=== PATIENT | female | born 1990 | race African-American/Black ===

== ENCOUNTER 2016-12-30 11:44 | Emergency (ER) | payer OTHER ==
[2016-12-30 12:00] VITALS: BP 113/63; PULSE 93; RESP 18; TEMP 99.3; O2SAT 99
--- NOTE | 2016-12-30 12:27 | PD ---
HPI Chief Complaint: Psychiatric Symptoms Time Seen by Provider: 12:27 Travel History International Travel<30 days: No Contact w/Intl Traveler<30days: No Traveled to known affect area: No History of Present Illness HPI 26-year-old female is brought to the emergency department under Phillip act for suicidal ideations. Per the Phillip act report the patient took a picture of herself holding a gun to her head and sent this in a text message to her friends. She states that she's had recent life stressors such as losing her job , relationship issues and multiple family illnesses that is causing her to feel overwhelmed. She denies suicidal or homicidal ideations. She denies any attempts to harm herself. Denies any ingestion of substances in an attempt to harm herself. She denies any physical complaints. Denies any chest pain, shortness of breath, abdominal pain, nausea, vomiting, diarrhea, headache, dizziness. Denies alcohol or drug use. No other complaints. PFSH Past Medical History Medical History: Denies Significant Hx Diminished Hearing: No Tetanus Vaccination: Unknown Influenza Vaccination: No ?: Not LMP: CURRENTLY ON PERIOD Past Surgical History Surgical History: No Previous Surgery Social History Alcohol Use: No Tobacco Use: No Substance Use: No Allergies-Medications (Allergen,Severity, Reaction): Coded Allergies: No Known Allergies (Unverified , 12/30/16) Reported Meds & Prescriptions Reported Meds & Active Scripts Active No Active Prescriptions or Reported Medications Review of Systems Except as stated in HPI: all other systems reviewed are Neg Physical Exam Narrative GENERAL: Well-nourished and well-developed pleasant female patient in no acute distress who is nontoxic appearing. SKIN: Warm and dry. HEAD: Normocephalic and atraumatic. EYES: No injection, drainage, or hyphema noted. PERRLA. EOMI. ENT: No nasal drainage noted. Oropharynx is clear. NECK: Supple and the trachea is midline. CARDIOVASCULAR: Regular rate and rhythm. RESPIRATORY: Breath sounds are equal bilaterally with no accessory muscle use, wheezing, rhonchi, or crackles. GASTROINTESTINAL: Abdomen is soft, non-tender, and nondistended. MUSCULOSKELETAL: No obvious deformities, swelling, cyanosis, or ecchymosis is present throughout the upper and lower extremities. Patient has full range of motion without any signs of neurovascular compromise. NEUROLOGICAL: Awake, alert, and oriented. Normal speech and gait. Cranial nerves are grossly intact. Data Data Last Documented VS Vital Signs Date Time Temp Pulse Resp B/P Pulse Ox O2 Delivery O2 Flow Rate FiO2 12/30/16 12:00 99.3 93 18 113/63 99 Room Air Orders Complete Blood Count With Diff (12/30/16 12:00) Comprehensive Metabolic Panel (12/30/16 12:00) Ed Urine Pregnancytest Poc (12/30/16 12:00) Psych Screen (12/30/16 12:00) Drug Screen, Random Urine (12/30/16 12:00) Alcohol (Ethanol) (12/30/16 12:00) Labs Laboratory Tests Test 12/30/16 12:15 White Blood Count 5.2 TH/MM3 Red Blood Count 4.96 MIL/MM3 Hemoglobin 12.2 GM/DL Hematocrit 37.9 % Mean Corpuscular Volume 76.4 FL Mean Corpuscular Hemoglobin 24.5 PG Mean Corpuscular Hemoglobin 32.1 % Concent Red Cell Distribution Width 14.9 % Platelet Count 240 TH/MM3 Mean Platelet Volume 8.2 FL Neutrophils (%) (Auto) 59.5 % Lymphocytes (%) (Auto) 32.5 % Monocytes (%) (Auto) 7.1 % Eosinophils (%) (Auto) 0.6 % Basophils (%) (Auto) 0.3 % Neutrophils # (Auto) 3.1 TH/MM3 Lymphocytes # (Auto) 1.7 TH/MM3 Monocytes # (Auto) 0.4 TH/MM3 Eosinophils # (Auto) 0.0 TH/MM3 Basophils # (Auto) 0.0 TH/MM3 CBC Comment DIFF FINAL Differential Comment Sodium Level 140 MEQ/L Potassium Level 3.7 MEQ/L Chloride Level 108 MEQ/L Carbon Dioxide Level 25.1 MEQ/L Anion Gap 7 MEQ/L Blood Urea Nitrogen 8 MG/DL Creatinine 0.65 MG/DL Estimat Glomerular Filtration 132 ML/MIN Rate Random Glucose 91 MG/DL Calcium Level 8.8 MG/DL Total Bilirubin 0.4 MG/DL Aspartate Amino Transf 17 U/L (AST/SGOT) Alanine Aminotransferase 17 U/L (ALT/SGPT) Alkaline Phosphatase 81 U/L Total Protein 8.3 GM/DL Albumin 3.4 GM/DL Urine Opiates Screen NEG Urine Barbiturates Screen NEG Urine Amphetamines Screen NEG Urine Benzodiazepines Screen NEG Urine Cocaine Screen NEG Urine Cannabinoids Screen NEG Ethyl Alcohol Level LESS THAN 3 MG/DL MDM Medical Decision Making Medical Screen Exam Complete: Yes Emergency Medical Condition: Yes Differential Diagnosis Differential: Depression versus adjustment reaction versus anxiety versus PTSD versus psychosis NOS versus mood disorder NOS versus substance induced mood disorder versus ODD versus adjustment reaction versus schizophrenia versus bipolar disorder versus schizoaffective versus electrolyte abnormality Narrative Course Patient presents under a Phillip act. Physical examination and vital signs are essentially unremarkable. Patient has no medical complaints to report. Psych screen has been ordered. The laboratory results are unremarkable for any acute abnormalities. The patient is medically cleared for psychiatric evaluation and disposition. Diagnosis Primary Impression: Adjustment disorder with depressed mood Scripts No Active Prescriptions or Reported Meds Vanna Cheek Dec 30, 2016 12:27
[2016-12-30 12:39] LABS: AUTOMATED NEUTROPHIL # 3.1 TH/MM3 (1.8-7.7); BASOPHIL % 0.3 % (0.0-2.0); EOSINOPHIL % 0.6 % (0.0-4.0); HEMATOCRIT 37.9 % (35.0-46.0); HEMO FLAGS DIFF FINAL; LYMPH % 32.5 % (9.0-44.0); LYMPHOCYTE # 1.7 TH/MM3 (1.0-4.8); MEAN CELL VOLUME 76.4 FL (80.0-100.0); MEAN CORPUSCULAR HEMOGLOBIN 24.5 PG (27.0-34.0); MEAN CORPUSCULAR HGB CONC 32.1 % (32.0-36.0); MONO % 7.1 % (0.0-8.0); NEUT % 59.5 % (16.0-70.0); PLATELET COUNT 240 TH/MM3 (150-450); RED BLOOD COUNT 4.96 MIL/MM3 (4.00-5.30); RED CELL DISTRIBUTION WIDTH 14.9 % (11.6-17.2); WHITE BLOOD COUNT 5.2 TH/MM3 (4.0-11.0)
[2016-12-30 12:46] LABS: AMPHETAMINE, URINE NEG (NEG); BARBITURATES, URINE NEG (NEG); COCAINE, URINE NEG (NEG)
[2016-12-30 13:10] LABS: ALT (GPT) 17 U/L (10-53); ANION GAP 7 MEQ/L (5-15); AST (GOT) 17 U/L (15-37); BICARBONATE 25.1 MEQ/L (21.0-32.0); BLOOD UREA NITROGEN 8 MG/DL (7-18); CHLORIDE 108 MEQ/L (98-107); GLOMERULAR FILTRATION RATE 132 ML/MIN (>89); POTASSIUM 3.7 MEQ/L (3.5-5.1); SODIUM (NA) 140 MEQ/L (136-145)
[2016-12-30 13:12] LABS: ALKALINE PHOSPHATASE 81 U/L (45-117); TOTAL BILIRUBIN ADULT 0.4 MG/DL (0.2-1.0)
[2016-12-30] MEDS ORDERED: [UNRECOGNIZED DRUG - CODE] (18:40)
[2016-12-30 18:59] VITALS: BP 115/66; PULSE 91; RESP 18; O2SAT 98
[2016-12-30 22:05] VITALS: BP 106/58; PULSE 65; RESP 18
[2016-12-31 06:19] VITALS: BP 103/57; PULSE 75; RESP 18; O2SAT 99
[2016-12-31 10:20] VITALS: BP 110/64; PULSE 57; RESP 16; TEMP 98.7; O2SAT 96
--- NOTE | 2016-12-31 11:40 | PD.PSY.CON ---
Provisional Diagnosis Admission Date [place]. Adjustment disorder with depressed mood f 43.21 History of Present Illness Service Psychiatry Consult Requested By EDMD Reason for Consult Phillip act Primary Care Physician No Primary Care Physician HPI Patient is a 26-year-old Afro-[place] female who comes here under Phillip act by the [employer] [employer] dated 12/30/16 at 11:08 AM that document reviewed states essentially sent picture to friends with gun pointed at her head Testred that she was going to end it all. Stated she was feeling suicidal due to recent family/job events. Patient seen screened in ED urine toxicology negative blood alcohol level. Patient seen in her room with nurse Jessica. Patient is alert oriented calm cooperative pleasant Afro-[place] female with good eye contact states she was upset with her boyfriend after he left the house they living in together and was not answering his phone. She became upset. Though she denies any suicidal ideation intent or plan at any time with this. She did not the gun wasn't intake and was on loaded. She states her boyfriend has stress with his family of origin multiple members having various medical issues that he is involved with. Patient denies any alcohol or drug use with this. Patient denies any prior psychiatric contact hospitalizations his psychotropic medications patient denies any prior suicide attempts. Patient has had some stress with the recent loss of her job, repossession of her vehicle, having to delay her return to school to get her [employer]. In any event at the present time patient does not meet Phillip criteria I'll lift Phillip act patient to be discharged to herself, no Rx by me, though strongly referral to [facility] psychiatric outpatient support groups Review of Systems Constitutional: DENIES: Diaphoretic episodes, Fatigue, Fever, Weight gain, Weight loss, Chills, Dizziness, Change in appetite, Night Sweats Endocrine: DENIES: Abnorml menstrual pattern, Heat/cold intolerance, Polydipsia , Polyuria, Polyphagia Eyes: DENIES: Blurred vision, Diplopia, Eye inflammation, Eye pain, Vision loss , Photosensitivity, Double Vision Ears, nose, mouth, throat: DENIES: Tinnitus, Hearing loss, Vertigo, Nasal discharge, Oral lesions, Throat pain, Hoarseness, Ear Pain, Running Nose, Epistaxis, Sinus Pain, Toothache, Odynophagia Respiratory: DENIES: Apneas, Cough, Snoring, Wheezing, Hemoptysis, Sputum production, Shortness of breath Cardiovascular: DENIES: Chest pain, Palpitations, Syncope, Dyspnea on Exertion , PND, Lower Extremity Edema, Orthopnea, Claudication Gastrointestinal: DENIES: Abdominal pain, Black stools, Bloody stools, Constipation, Diarrhea, Nausea, Vomiting, Difficulty Swallowing, Anorexia Genitourinary: DENIES: Abnormal vaginal bleeding, Dysmenorrhea, Dyspareunia, Sexual dysfunction, Urinary frequency, Urinary incontinence, Urgency, Hematuria , Dysuria, Nocturia, Vaginal discharge Musculoskeletal: DENIES: Joint pain, Muscle aches, Stiffness, Joint Swelling, Back pain, Neck pain Integumentary: DENIES: Abnormal pigmentation, Pruritus, Rash, Nail changes, Breast masses, Breast skin changes, Nipple discharge Hematologic/lymphatic: DENIES: Bruising, Lymphadenopathy Immunologic/allergic: DENIES: Eczema, Urticaria Psychiatric: COMPLAINS OF: Depression, DENIES: Anxiety, Confusion, Mood changes, Hallucinations, Agitation, Suicidal Ideation, Homicidal Ideation, Delusions Past Family Social History Coded Allergies: No Known Allergies (Unverified , 12/30/16) Past Medical History Patient denies any significant medical problems Reported Medications [place]-Kkydcxjnjwalm-Eyfzluok (Headache Relief)250-250-65 Mg Tab 12/30/16 Family History Patient denies mental health issues and family Social History Patient lives with boyfriend Patient's Strengths (min. 2) Patient verbal cooperative [facility] Physical Exam Patient seen screened and likely cleared in ED Vital Signs Vital Signs Date Time Temp Pulse Resp B/P Pulse Ox O2 Delivery O2 Flow Rate FiO2 12/31/16 10:20 98.7 57 16 110/64 96 Room Air Mental Status Examination Alert oriented full figured Afro[place] female calm cooperative pleasant with good eye contact Appearance Clean and neat Speech: Unremarkable Orientation: x3 Memory: Unremarkable Thought Process: Logical, Organized Thought Content: Unremarkable Language Fair Fund of Knowledge Fair Hallucination Type: None Attention and Concentration: Good Suicidal Ideation: No (denies) Previous Suicide Attempts: No Homicidal Ideation: No Previous Homicide Attempts: No Insight: Fair Judgment: Poor Affect: Other (slight decreased range of motion intensity) Mood: Euthymic (to mildly dysphoric) Motor Activity: Normal gait Assessment & Plan Problem List: (1) Adjustment disorder with depressed mood ICD Code: F43.21 Assessment & Plan Estimated LOS: days this does not meet Phillip criteria will lift Phillip act, as okay by psych for discharge or medically clear and stable, no Rx by me, strong referral [facility] outpatient support groups Discharge Planning See above Request HC Surrog/Guard Advoc?: No Rubin Ayers MD Dec 31, 2016 11:40
[2016-12-31 12:03] VITALS: BP 110/64; TEMP 97.6
== END 2016-12-31 12:12 | disposition home or self-care (01) ==
LOC: NEPD 11:44 → NEPJ 12-31 12:12
DX: F43.21 Adjustment disorder with depressed mood (principal)
CPT/HCPCS: 80053; 80307; 84703; 85025; 99284